=== PATIENT | male | born 1995 | race Caucasian/White ===

== ENCOUNTER 2019-01-11 13:13 | Emergency (ER) | payer OTHER ==
[2019-01-11] MEDS ORDERED: diazePAM 2 MG TAB PO ONE (13:36)
[2019-01-11] MEDS ORDERED: SODIUM CHLORIDE 0.9% 1000ML 1,000 ML IVS ONE (13:36)
--- NOTE | 2019-01-11 14:01 | RAD ---
EXAM DESCRIPTION: Chest,2 Views CLINICAL HISTORY: right sided chest pain COMPARISON: None FINDINGS: Cardiac silhouette is within normal limits. EKG leads project over the chest. There is no focal parenchymal or pleural disease. There is no acute osseous process visualized. IMPRESSION: No evidence of acute cardiopulmonary disease. Electronically signed by: Shashank Escalera MD 01/11/2019 1:59 PM [facility]
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
[2019-01-11 15:07] VITALS: BP 133/75; TEMP 98.6; O2SAT 98
== END 2019-01-11 15:22 | disposition home or self-care (01) ==
LOC: ER 13:13
DX: M79.2 Neuralgia and neuritis, unspecified (principal); M62.838 Other muscle spasm; F41.9 Anxiety disorder, unspecified; J45.909 Unspecified asthma, uncomplicated; Z87.891 Personal history of nicotine dependence
CPT/HCPCS: 36415; 71046; 80053; 82550; 82553; 83605; 83735; 83880; 84443; 84484; 85025; 93005; J7030